=== PATIENT | male | born 1945 | race Caucasian/White ===

== ENCOUNTER 2016-05-30 07:07 | Emergency (ER) | payer OTHER ==
[~2016-05-30] VITALS: Ht 177.8 cm; Wt 90.7 kg
[2016-05-30] MEDS: NICARDIPINE 25MG/250ML BAG KIT 250 ML IV SCH ×2 (07:32→12:32)
[2016-05-30] MEDS: LABETALOL HCL 5 MG/ML 4ML SYRINGE IV ONE ×2 (07:45→08:02)
[2016-05-30] MEDS ORDERED: LABETALOL HCL 5 MG/ML 4ML SYRINGE IV ONE ×3 (07:45→12:00)
[2016-05-30 08:24] LABS: Basophils # (auto) 0 uL; Basophils % (auto) 0.5 % (0.0-2.0); Eosinophils # (auto) 0.3 uL; Eosinophils % (auto) 2.9 % (0.0-7.0); Hematocrit 48.1 % (41.0-53.0); Hemoglobin 16.3 g/dL (13.5-17.5); Lymphocytes # (auto) 3.2 uL; Lymphocytes % (auto) 32.5 % (10.0-50.0); Mean Corpuscular Hemoglobin 30.7 pg (28.0-32.0); Mean Corpuscular Hgb Conc. 33.9 g/dL (32.0-36.0); Mean Corpuscular Volume 90.7 fL (80.0-100.0); Mean Platelet Volume 9.8 fL (7.4-10.4); Monocytes # (auto) 0.6 uL; Monocytes % (auto) 6.1 % (0.0-12.0); Neutrophils # (auto) 5.7 uL; Platelet Count (auto) 213 10^3/uL (140-450); Red Cell Distribution Width 12.1 % (11.6-16.0); White Blood Cell 9.8 10^3/uL (4.4-10.8)
[2016-05-30 08:43] LABS: Albumin 3.9 g/dL (3.4-5.0); BUN/Creatinine Ratio 17.9; Calcium 9.2 mg/dL (8.5-10.1); Potassium 3.6 mmol/L (3.5-5.1); Total Protein 7.5 g/dL (6.4-8.2)
[2016-05-30 09:09] LABS: INR 1.08 (0.9-1.15); Partial Thromboplastin Time 26.9 sec (22.64-33.71); Prothrombin Time 11.1 sec (9.37-12.3)
[2016-05-30] MEDS ORDERED: ACETAMINOPHEN 650 mg PER 20 mL UD ONE (11:57)
[2016-05-30] MEDS ORDERED: ACETAMINOPHEN 650 mg PER 20 mL UD PO ONE (12:00)
[2016-05-30 12:57] VITALS: BP 142/99
== END 2016-05-30 13:02 | disposition short-term general hospital (02) ==
LOC: EDBD 07:07 → ER 07:17
DX: R04.0 Epistaxis (principal); I10 Essential (primary) hypertension; E11.9 Type 2 diabetes mellitus without complications
CPT/HCPCS: 36415; 71010; 80053; 85025; 85049; 85610; 85730; 96374; 96376; 99285; J3490; 30901

== ENCOUNTER 2023-03-31 18:09 | Emergency (ER) | payer OTHER ==
[~2023-03-31] VITALS: Ht 172.7 cm; Wt 83.4 kg
[2023-03-31] MEDS ORDERED: predniSONE 20 MG TAB PO ONE (20:30)
[2023-03-31] MEDS ORDERED: ONDANSETRON HCL 4 MG/2 ML VIAL IV ONE (20:30)
[2023-03-31] MEDS ORDERED: VANCOMYCIN PER PHARMACY 0 MG IV SCH (20:30)
[2023-03-31] MEDS ORDERED: SODIUM CHLORIDE 0.9% 2,500 ML IV ONE (20:30)
[2023-03-31] MEDS ORDERED: ACETAMINOPHEN 325 MG TAB PO ONE (20:30)
[2023-03-31] MEDS ORDERED: PANTOPRAZOLE 40 MG/10 ML VIAL INJ IV ONE (20:30)
[2023-03-31 21:28] LABS: Hematocrit 50.6 % (41.0-53.0); Hemoglobin 16.6 g/dL (13.5-17.5); Mean Corpuscular Hemoglobin 31.9 pg (28.0-32.0); Mean Corpuscular Hgb Conc. 32.8 g/dL (32.0-36.0); Mean Corpuscular Volume 97.2 fL (80.0-100.0); Red Blood Cells 5.21 10^6/uL (4.5-5.90); Red Cell Distribution Width 13.6 % (11.8-14.3); White Blood Cell 7.9 10^3/uL (4.4-10.8)
[2023-03-31 21:32] LABS: Band Neutrophils % (manual) 0; Basophils % (manual) 0 (0.0-2.0); Blast Cells 0; Eosinophils % (manual) 0 (0-7); Metamyelocytes % 0; Myelocytes % 0; Promyelocytes % 0; Reactive Lymphocytes 0
[2023-03-31 22:06] LABS: Magnesium 1.7 mg/dL (1.6-2.6)
[2023-03-31 22:08] LABS: INR 1.09 (0.9-1.15); Partial Thromboplastin Time 26.3 SEC (24.5-34.5); Prothrombin Time 11.4 sec (9.3-11.8)
[2023-03-31 22:09] LABS: Anion Gap 11 (5-15); BUN/Creatinine Ratio 8.5 (10.0-20.0); Creatine Kinase IFCC 111 U/L (46-171)
[2023-03-31] MEDS ORDERED: VANCOMYCIN 1GM/250ML 250 ML IV ONE (22:30)
[2023-03-31 22:31] LABS: Alkaline Phosphatase 95 U/L (46-116); Blood Urea Nitrogen 10 mg/dL (9-23); Carbon Dioxide 23 mmol/L (20-30); Chloride 108 mmol/L (98-107); Glucose 149 mg/dL (74-106); Potassium 4.1 mmol/L (3.5-5.1); Sodium 142 mmol/L (136-145)
[2023-03-31 22:32] LABS: Alanine Aminotransferase 14 U/L (7-40); Albumin 3.7 g/dL (3.2-4.8); Aspartate Aminotransferase 22 U/L (13-40); Blood Alcohol < 3.0 mg/dL (<10); Calcium 9.2 mg/dL (8.5-10.1)
[2023-03-31 22:50] VITALS: PULSE 66; RESP 16; O2SAT 98
[2023-03-31 22:59] LABS: Lymphocytes % (manual) 15 (10.0-50.0); Monocytes % (manual) 15 (0-12); Platelet Estimate Decreased; RBC Morphology Normal
[2023-03-31] MEDS ORDERED: ENALAPRILAT 1.25 MG/ML-1ML VIAL IV ONE (23:15)
[2023-03-31 23:17] LABS: Lactic Acid w/Reflex 2.1 mmol/L (0.4-2.0)
[2023-04-01] MEDS: PIPERACILLIN-TAZOB 3.375GM 100 ML IV SCH ×2 (00:56→06:03)
[2023-04-01 04:37] LABS: Urine Bacteria NONE SEEN /hpf (None Seen); Urine Blood Negative /uL (Negative); Urine Clarity Clear (Clear); Urine Color Colorless (Yellow); Urine Protein, UAD Negative (Negative); Urine Specific Gravity 1.004 (1.001-1.035); Urine Urobilinogen Normal (Negative); Urine WBC <1 /hpf (0 - 3)
[2023-04-01 04:59] LABS: Amphetamine Screen, Urine Neg (NEGATIVE); Barbiturate Scree,Urine Neg (NEGATIVE); Benzodiazephine Screen, Urine Neg (NEGATIVE); Cocaine Screen, Urine Neg (NEGATIVE)
[2023-04-01 05:00] LABS: Cannabinoid Screen, Urine Neg (NEGATIVE); Opiate Scree,Urine Neg (NEGATIVE); Phencyclidine Screen, Urine Neg (NEGATIVE)
[2023-04-01 07:02] LABS: COVID19 ANTIGEN SOFIA FIA POSITIVE (NEGATIVE)
[2023-04-01 07:55] VITALS: PULSE 53; RESP 17; O2SAT 99
[2023-04-01] MEDS ORDERED: amLODIPine BESYLATE 5 MG TAB PO ONE (08:30)
[2023-04-01 11:01] VITALS: BP 169/97; PULSE 55; RESP 16; TEMP 97.8; O2SAT 99
== END 2023-04-01 11:13 | disposition short-term general hospital (02) ==
LOC: EDBD 18:09 → ER 18:09
DX: G70.01 Myasthenia gravis with (acute) exacerbation (principal); U07.1 COVID-19; I10 Essential (primary) hypertension; E11.9 Type 2 diabetes mellitus without complications; Z98.890 Other specified postprocedural states; Z86.2 Personal history of diseases of the blood and blood-forming organs and certain disorders involving the immune mechanism; Z79.899 Other long term (current) drug therapy
CPT/HCPCS: 36415; 70450; 71045; 72131; 80053; 80307; 80320; 81001; 82550; 83605; 83735; 83880; 84443; 84484; 85007; 85027; 85610; 85730; 87040; 87086; 87426; 93005; 96365; 96366; 96367; 96375; 99285; C9113; J2543; J3370; J7512; 99291

== ENCOUNTER 2024-05-14 17:13 | Inpatient (IN) | payer OTHER ==
[~2024-05-14] VITALS: Ht 170.2 cm; Wt 84.2 kg
--- NOTE | 2024-05-14 18:26 | ED.PDOC ---
HPI Comments HPI: Poor Historian. Vitals: Temp: 97.4 F RR; 20 Heart rate: 50 BP: 207/78 Past Medical History: diabetes, hypertension, hyperlipidemia, Past Surgical History: triple bypass surgery 2022, medications: Plavix, metformin, atorvastatin, terbinafine, terazosin, lisinopril, prednisone , allergies: nkda REVIEW OF SYSTEMS: CONSTITUTIONAL: Denies acute: fever, diaphoresis, chills, generalized weakness. HEAD: Denies acute: headache, photophobia Eyes: Denies acute: Double vision, vision loss, eye pain, eye discharge. EARS: Denies acute: tinnitus, hearing loss, ear discharge, ear pain, THROAT: Denies acute: sore throat, swelling, difficulty swallowing , pain with swallowing, change in voice. NECK: Denies acute: neck pain, neck swelling, stiff neck. HEART: Denies acute : chest pain, palpitations, LUNGS: Denies acute: SOB, wheezing, cough, hemoptysis ABDOMEN: Denies acute: abdominal pain, Nausea, Vomiting, diarrhea, melena , hematemesis, hematochezia SKIN: Denies acute: rash, redness, lesions, itchiness. EXTREMITIES: Denies acute: calf pain, numbness, tingling, weakness, denies pain in extremity. Denies acute: Low back pain. Neuro: Denies acute: focal neurological deficit, motor or sensory focal neurological deficit, tremors, seizure like activity, confusion, dizziness, change in mental status, loss of bowel or bladder function, cauda equina like symptoms. : Denies acute: dysuria, hematuria, flank pain, increase in urinary frequency. PSYCH: Denies acute: hallucination, suicidal ideation, homicidal ideation. PHYSICAL EXAM: General: no acute distress, awake and alert. Hard of hearing Head: normocephalic, atraumatic. Neck: supple, trachea is midline, no swelling. Throat: Normal phonation. Eyes:, no purulent discharge, no proptosis, no icterus. Heart: regular rate, regular rhythm, no significant murmur appreciated. Lungs: no apparent respiratory distress, Able to speak in full sentences. No wheezing, no rhonchi, no crackles. No stridors Clear to auscultation bilaterally. Abdomen: non tender to palpation, non distended, soft, no guarding, no rebound, + bowel sounds. Neuro: Awake, Alert, oriented to name, self, situation, follows commands GCS=15. Speech is normal. Skin: no petechia, no purpura, no cyanosis, non-pale, not jaundice. Lower extremities: --trace bilateral - Pitting edema no deformity, no focal swelling, no calf TTP. Makes eye contact. moves all four extremities. Face: no apparent facial droop. Ambulating in the ED independently. Chief Complaint: High Blood Pressure Time Seen by MD: 17:19 Primary Care Provider: ? Reviewed Notes: Nurses Notes, Medications, Allergies Allergies: Coded Allergies: NO KNOWN ALLERGIES (Unverified , 05/30/16) Information Source: Patient Mode of Arrival: Ambulatory Past Medical History PAST MEDICAL HISTORY: DM, HTN, Denies Family History Family History: Unknown Social History Smoker: Non-Smoker Alcohol: Denies ETOH Use Drugs: Denies Drug Use Was a procedure done? Was a procedure done?: No X-Ray, Labs, Meds, VS Vital Signs Date Time Temp Pulse Resp B/P (MAP) Pulse Ox O2 Delivery O2 Flow Rate FiO2 05/15/24 00:52 120/81 05/15/24 00:04 56 18 120/81 (94) 96 05/14/24 22:21 53 18 181/79 (113) 97 05/14/24 21:23 208/93 05/14/24 21:22 53 18 208/93 (131) 97 05/14/24 20:52 208/76 05/14/24 20:17 209/99 05/14/24 20:00 98.7 50 16 209/99 (135) 96 98.7 05/14/24 18:09 51 05/14/24 18:05 97.4 50 20 207/78 (121) 96 Lab Test 05/14/24 21:38 05/14/24 20:12 05/14/24 19:50 05/14/24 19:30 Range/Units Troponin I High Sensitivity 17 14 </=54 ng/L SARS-CoV-2 Antigen (Rapid) Negative NEGATIVE Urine Color Colorless Yellow Urine Clarity Clear Clear Urine pH 6.5 5.0-9.0 Urine Specific [place] 1.005 1.001-1.035 Urine Protein Negative Negative Urine Ketones Negative Negative Urine Blood Negative Negative /uL Urine Nitrite Negative Negative Urine Bilirubin Negative Negative Urine Urobilinogen Normal Negative mg/dL Urine Leukocyte Esterase Negative Negative /uL Urine RBC None seen 0 - 3 /hpf Urine WBC <1 0 - 3 /hpf Urine Squamous Epithelial Cells None seen <5 /hpf Urine Bacteria None seen None Seen /hpf Urine Glucose 1+ H Normal mg/dL Test 05/14/24 18:56 Range/Units White Blood Count 6.7 4.4-10.8 10^3/uL Red Blood Count 4.94 4.5-5.90 10^6/uL Hemoglobin 15.6 13.5-17.5 g/dL Hematocrit 46.1 41.0-53.0 % Mean Corpuscular Volume 93.4 80.0-100.0 fL Mean Corpuscular Hemoglobin 31.7 28.0-32.0 pg Mean Corpuscular Hemoglobin Concent 33.9 32.0-36.0 g/dL Red Cell Distribution Width 13.7 11.8-14.3 % Platelet Count 160 140-450 10^3/uL Mean Platelet Volume 9.5 6.9-10.8 fL Neutrophils (%) (Auto) 64.8 37.0-80.0 % Lymphocytes (%) (Auto) 25.5 10.0-50.0 % Monocytes (%) (Auto) 8.6 0.0-12.0 % Eosinophils (%) (Auto) 0.7 0.0-7.0 % Basophils (%) (Auto) 0.4 0.0-2.0 % Neutrophils # (Auto) 4.3 1.6-8.6 10 ^3/uL Lymphocytes # (Auto) 1.7 0.4-5.4 10 ^3/uL Monocytes # (Auto) 0.6 0-1.3 10 ^3/uL Eosinophils # (Auto) 0 0-0.8 10 ^3/uL Basophils # (Auto) 0 0-0.2 10 ^3/uL Nucleated Red Blood Cells 0.0 % Sodium Level 141 136-145 mmol/L Potassium Level 4.9 3.5-5.1 mmol/L Chloride Level 106 98-107 mmol/L Carbon Dioxide Level 28 20-31 mmol/L Anion Gap 7 5-15 Blood Urea Nitrogen 19 9-23 mg/dL Creatinine 1.39 H 0.700-1.30 mg/dL Glomerular Filtration Rate Calc 52 >90 mL/min BUN/Creatinine Ratio 13.7 10.0-20.0 Serum Glucose 187 H 74-106 mg/dL Calcium Level 9.9 8.7-10.4 mg/dL Total Bilirubin 1.0 0.2-1.0 mg/dL Aspartate Amino Transferase (AST) 30 13-40 U/L Alanine Aminotransferase (ALT) 33 7-40 U/L Alkaline Phosphatase 139 H 46-116 U/L Troponin I High Sensitivity 12 </=54 ng/L B-Type Natriuretic Peptide 867.15 0-100 pg/mL Total Protein 6.5 5.7-8.2 g/dL Albumin 4.3 3.2-4.8 g/dL Current Medications Medications (Trade) Dose Ordered Sig/Farheen Route Start Time Stop Time Status Last Admin Hydralazine HCl (Apresoline Injection) 5 mg ONCE ONCE IV 05/14/24 18:15 05/14/24 18:16 DC 05/14/24 20:17 Furosemide (Lasix Injection) 40 mg ONCE ONCE IV 05/14/24 20:30 05/14/24 20:31 DC 05/14/24 20:52 Nitroglycerin (Ntrostat Sublingual) 0.4 mg ONCE ONCE SL 05/14/24 20:30 05/14/24 20:31 DC 05/14/24 21:23 [place] [id number] Ph: [phone] DIAGNOSTIC IMAGING Diagnostic Imaging Report : [id number] Signed PATIENT: SANTOS SYED ACCT: [id number] UNIT: [id number] : 1945 LOC: ER ROOM / BED: / AGE / SEX: 78 / M ADM STATUS: REG ER SERVICE 11 ORDERING PHYSICIAN: PEDRITO BECKETT DO PROCEDURE(s): HWOCT - HEAD WITHOUT CONTRAST REASON: R/O BLEED ORDER NUMBER(s): [id number], ACCESSION NUMBER(s): [id number] CT BRAIN WITHOUT CONTRAST HISTORY: R/O BLEED TECHNIQUE: Axial scans were obtained from the skull base through the vertex without contrast. Sagittal and coronal reformats were generated. One or more of the following radiation dose reduction techniques were used for this examination: automated exposure control, adjustment of the mA and/or kV according to patient size, use of iterative reconstruction technique. COMPARISON: CT HEAD WITHOUT CONTRAST on DOS: 03/31/23 FINDINGS: Generalized cerebral atrophy. Patchy periventricular and subcortical white matter hypoattenuation again noted bilaterally. No acute intracranial hemorrhage or definite evidence of large vessel territorial infarction is identified at this time. No midline shift. The basilar cisterns are patent. The visualized paranasal sinuses and mastoid air cells are clear. No mostly displaced calvarial fracture is identified. IMPRESSION: No acute intracranial findings. Chronic appearing nonspecific white matter changes which may be sequelae of microangiopathy. ATED BY: ABE WASHINGTON MD DICTATED DATE/TIME: 05/14/241843 SIGNED BY: ABE WASHINGTON MD SIGNED DATE/TIME: 05/14/241843 CC: [place] [id number] Ph: [phone] DIAGNOSTIC IMAGING Diagnostic Imaging Report : [id number] Signed PATIENT: SANTOS SYED ACCT: [id number] UNIT: [id number] : 1945 LOC: ER ROOM / BED: / AGE / SEX: 78 / M ADM STATUS: REG ER SERVICE 03 ORDERING PHYSICIAN: PEDRITO BECKETT DO PROCEDURE(s): CXR2 - CHEST TWO VIEWS ROUTINE REASON: HYPERTENSION ORDER NUMBER(s): [id number], ACCESSION NUMBER(s): [id number] CHEST RADIOGRAPH Indication: HYPERTENSION Technique: Frontal and lateral view of the chest was obtained Comparison: None FINDINGS: Lines and Tubes: None Lungs: Clear Pleura: No effusion. No pneumothorax. Cardiomediastinal contours: Mild cardiomegaly. Bones: Unremarkable IMPRESSION: No evidence of acute disease. ATED BY: LYNNE FUNK DO DICTATED DATE/TIME: 05/14/241836 SIGNED BY: LYNNE FUNK DO SIGNED DATE/TIME: 05/14/241836 CC: Time of 1ST Reevaluation: 19:01 (The case was discussed with the [facility] admitting team (HPI, physical exam, labs and diagnostic tests that were available at the time of disposition, ED course, treatment plan) on the phone. They said they will most likely authorized us to keep the patient our facility since they have no capacity at the hospitalist. Labs are still pending. Authorization number is [id number] Dr. Calderon) Reevaluation 1ST: Unchanged Time of 2ND Reevaluation: 01:49 ([facility] was contacted again because we have not heard from them yet. They now authorized us to keep the patient our facility for further evaluation and treatment. Authorization #[id number] Dr. Gokul Alegre) Patient Education/Counseling: Diagnosis, Treatment Family Education/Counseling: No Family Present Comments MDM: Patient presented with the above HPI.---high blood pressure-- -workup was initiated. patient was found with the above mentioned diagnosis. The following tests / medications were ordered: nitro, furosemide, covid 19 test , chest x-ray, BNP, CBC, CMP, hydralazine, troponinx3, EKG x3, CT head w/o contrast, UA Patient ED course and VS have been stabilized. Patient has been reassessed in the ED and remained in a stable condition. Patient has been observed in the ED adequate length of time to insure improvement/stability. Escalation of care considered: Consideration of escalation to observation or admission. patient was ADMITTED to the medicine team for further evaluation and treatment of their presentation. All the reports of any imaging studies that were ordered by myself were reviewed by myself. Departure 1 Departure Time of Disposition: 20:24 Impression: Primary Impression: Hypertensive crisis Additional Impression: Abnormal EKG Disposition: ADMITTED INPATIENT Admit to: Tele Condition: Guarded Discharged With: Self Critical Care Note Critical Care Time?: No Heart Score Heart Score: Heart Score Response (Comments) Value History Moderate Suspicious 1 Age >65 2 Risk Factors >3 or Hx ASHD 2 Troponin Normal limit 0 Total 5 I personally scribed for PEDRITO BECKETT DO (AMISHAFARMI) on 05/14/24 at 18:48. Electronically submitted by French Dent ([email or web address]). I personally scribed for PEDRITO BECKETT DO (AMISHAFARMI) on 05/14/24 at 22:10. Electronically submitted by French Dent (ARABELLA). I personally scribed for PEDRITO BECKETT DO (AMISHAFARMI) on 05/14/24 at 22:11. Electronically submitted by French Dent ([facility]). PEDRITO BECKETT DO May 14, 2024 18:26
--- NOTE | 2024-05-14 18:39 | DVH ---
CHEST RADIOGRAPH Indication: HYPERTENSION Technique: Frontal and lateral view of the chest was obtained Comparison: None FINDINGS: Lines and Tubes: None Lungs: Clear Pleura: No effusion. No pneumothorax. Cardiomediastinal contours: Mild cardiomegaly. Bones: Unremarkable IMPRESSION: No evidence of acute disease.
--- NOTE | 2024-05-14 18:47 | DVH ---
CT BRAIN WITHOUT CONTRAST HISTORY: R/O BLEED TECHNIQUE: Axial scans were obtained from the skull base through the vertex without contrast. Sagitta l and coronal reformats were generated. One or more of the following radiation dose reduction techniq ues were used for this examination: automated exposure control, adjustment of the mA and/or kV accord ing to patient size, use of iterative reconstruction technique. COMPARISON: CT HEAD WITHOUT CONTRAST on DOS: 03/31/23 FINDINGS: Generalized cerebral atrophy. Patchy periventricular and subcortical white matter hypoattenuation aga in noted bilaterally. No acute intracranial hemorrhage or definite evidence of large vessel territorial infarction is ident ified at this time. No midline shift. The basilar cisterns are patent. The visualized paranasal sinuses and mastoid air cells are clear. No mostly displaced calvarial fract ure is identified. IMPRESSION: No acute intracranial findings. Chronic appearing nonspecific white matter changes which may be sequelae of microangiopathy.
[2024-05-14 19:10] LABS: Basophils # (auto) 0 10 ^3/uL (0-0.2); Basophils % (auto) 0.4 % (0.0-2.0); Eosinophils # (auto) 0 10 ^3/uL (0-0.8); Eosinophils % (auto) 0.7 % (0.0-7.0); Hematocrit 46.1 % (41.0-53.0); Hemoglobin 15.6 g/dL (13.5-17.5); Lymphocytes # (auto) 1.7 10 ^3/uL (0.4-5.4); Lymphocytes % (auto) 25.5 % (10.0-50.0); Mean Corpuscular Hemoglobin 31.7 pg (28.0-32.0); Mean Corpuscular Hgb Conc. 33.9 g/dL (32.0-36.0); Mean Corpuscular Volume 93.4 fL (80.0-100.0); Monocytes # (auto) 0.6 10 ^3/uL (0-1.3); Monocytes % (auto) 8.6 % (0.0-12.0); Neutrophils # (auto) 4.3 10 ^3/uL (1.6-8.6); Neutrophils % (auto) 64.8 % (37.0-80.0); Platelet Count (auto) 160 10^3/uL (140-450); Red Blood Cells 4.94 10^6/uL (4.5-5.90); Red Cell Distribution Width 13.7 % (11.8-14.3); White Blood Cell 6.7 10^3/uL (4.4-10.8)
[2024-05-14 19:27] LABS: Alanine Aminotransferase 33 U/L (7-40); Albumin 4.3 g/dL (3.2-4.8); Anion Gap 7 (5-15); Aspartate Aminotransferase 30 U/L (13-40); BUN/Creatinine Ratio 13.7 (10.0-20.0); Blood Urea Nitrogen 19 mg/dL (9-23); Calcium 9.9 mg/dL (8.7-10.4); Carbon Dioxide 28 mmol/L (20-31); Chloride 106 mmol/L (98-107); Potassium 4.9 mmol/L (3.5-5.1); Sodium 141 mmol/L (136-145); Total Protein 6.5 g/dL (5.7-8.2)
[2024-05-14 19:32] LABS: Alkaline Phosphatase 139 U/L (46-116); Glucose 187 mg/dL (74-106)
[2024-05-14 20:00] VITALS: TEMP 98.7
[2024-05-14] MEDS: hydrALAZINE HCL 20 MG/ML VL IV ONE (20:17)
[2024-05-14] MEDS: FUROSEMIDE 40 MG/4 ML VIAL IV ONE (20:52)
[2024-05-14 20:57] LABS: Urine Bacteria None Seen /hpf (None Seen)
[2024-05-14 21:18] LABS: Urine Blood Negative /uL (Negative); Urine Clarity Clear (Clear); Urine Color Colorless (Yellow); Urine Protein, UAD Negative (Negative); Urine Specific Gravity 1.005 (1.001-1.035); Urine Squamous Epithelial Cell None Seen /hpf (<5); Urine Urobilinogen Normal (Negative); Urine WBC <1 /hpf (0 - 3); Urine pH 6.5 (5.0-9.0)
[2024-05-14] MEDS: NITROGLYCERIN 0.4 MG SL TAB SL ONE (21:23)
[2024-05-14 21:54] LABS: COVID19 ANTIGEN SOFIA FIA NEGATIVE (NEGATIVE)
[2024-05-15] MEDS ORDERED: ACETAMINOPHEN 325 MG TAB PO PRN (02:45)
[2024-05-15] MEDS ORDERED: DEXTROSE (50%) 50ML SYRG IV PRN (02:45)
[2024-05-15] MEDS ORDERED: ONDANSETRON HCL 4 MG/2 ML VIAL IV PRN (02:45)
[2024-05-15] MEDS ORDERED: hydrALAZINE HCL 20 MG/ML VL IV PRN (02:45)
--- NOTE | 2024-05-15 03:06 | DVHHP2 ---
History of Present Illness Reason for Visit: High blood pressure History of Present Illness 78-year-old male presents for evaluation of elevated blood pressure. Patient presents with complaints of elevated blood pressure. Patient noted slight bleeding to his left eye a when he checked his blood pressure it was greater than 200. Currently he denies headache or blurred vision. No chest pain or palpitations. No other acute complaints reported. Past Medical History Dyslipidemia, hypertension, CAD, diabetes mellitus Past Surgical History Triple bypass Family History Noncontributory Smoke: No ALCOHOL: none Drugs: None Lives: with Family Review of Systems Review of Systems Review of systems are currently negative otherwise addressed in HPI. Allergies: Coded Allergies: NO KNOWN ALLERGIES (Unverified , 05/30/16) Medications Current Medications Medications Dose Ordered Sig/Farheen Route Start Time Stop Time Status Last Admin Dose Admin Prednisone 10 mg DAILY PO 05/15/24 10:00 UNV Lisinopril 5 mg DAILY PO 05/15/24 10:00 UNV Clopidogrel Bisulfate 75 mg DAILY PO 05/15/24 10:00 UNV Atorvastatin Calcium 40 mg HS PO 05/15/24 22:00 UNV Isosorbide Mononitrate 60 mg DAILY PO 05/15/24 10:00 UNV Patient Own Medication 5 mg BID PO 05/15/24 10:00 UNV Furosemide 40 mg DAILY PO 05/15/24 10:00 UNV Ondansetron HCl 4 mg Q4HP PRN IV 05/15/24 02:45 UNV Enoxaparin Sodium 40 mg DAILY SC 05/15/24 10:00 UNV Acetaminophen 650 mg Q6HP PRN PO 05/15/24 02:45 UNV Diagnostic Test (Pha) 1 strip ACHS 05/15/24 07:00 UNV Insulin Human Regular ACHS SC 05/15/24 07:00 UNV Dextrose 50 ml UD PRN IV 05/15/24 02:45 UNV Hydralazine HCl 10 mg Q6HP PRN IV 05/15/24 02:45 UNV Exam Vital Signs Vital Signs Date Time Temp Pulse Resp B/P (MAP) Pulse Ox O2 Delivery O2 Flow Rate FiO2 05/15/24 00:52 120/81 05/15/24 00:04 56 18 96 05/14/24 20:00 98.7 98.7 Exam Gen: 78-year-old male in mild distress Skin: Warm, dry, normal color and texture, no rash. HEENT: Normocephalic atraumatic, mucous membranes moist and pink. Neck: Cervical and supraclavicular nodes normal without enlargement, trachea is midline, thyroid gland is normal without masses. Pulmonary: Clear to auscultation and percussion bilaterally. Cardiac: Regular rate and rhythm. No murmur Abdomen: Soft, nontender, nondistended, bowel sounds present all 4 quadrants, no guarding, no rigidity, no organomegaly. Extremities: No cyanosis, clubbing, no edema Neuro: Cranial nerves II through XII grossly intact, normal affect and speech, no focal motor deficits. Labs/Xrays ORDERING PHYSICIAN: PEDRITO BECKETT DO PROCEDURE(s): CXR2 - CHEST TWO VIEWS ROUTINE REASON: HYPERTENSION ORDER NUMBER(s): [id number], ACCESSION NUMBER(s): [id number] CHEST RADIOGRAPH Indication: HYPERTENSION Technique: Frontal and lateral view of the chest was obtained Comparison: None FINDINGS: Lines and Tubes: None Lungs: Clear Pleura: No effusion. No pneumothorax. Cardiomediastinal contours: Mild cardiomegaly. Bones: Unremarkable IMPRESSION: No evidence of acute disease. RING PHYSICIAN: PEDRITO BECKETT DO PROCEDURE(s): HWOCT - HEAD WITHOUT CONTRAST REASON: R/O BLEED ORDER NUMBER(s): [id number], ACCESSION NUMBER(s): [id number] CT BRAIN WITHOUT CONTRAST HISTORY: R/O BLEED TECHNIQUE: Axial scans were obtained from the skull base through the vertex without contrast. Sagittal and coronal reformats were generated. One or more of the following radiation dose reduction techniques were used for this examination: automated exposure control, adjustment of the mA and/or kV according to patient size, use of iterative reconstruction technique. COMPARISON: CT HEAD WITHOUT CONTRAST on DOS: 03/31/23 FINDINGS: Generalized cerebral atrophy. Patchy periventricular and subcortical white matter hypoattenuation again noted bilaterally. No acute intracranial hemorrhage or definite evidence of large vessel territorial infarction is identified at this time. No midline shift. The basilar cisterns are patent. The visualized paranasal sinuses and mastoid air cells are clear. No mostly displaced calvarial fracture is identified. IMPRESSION: No acute intracranial findings. Chronic appearing nonspecific white matter changes which may be sequelae of microangiopathy. Labs Test 05/14/24 21:38 05/14/24 19:50 05/14/24 19:30 05/14/24 18:56 Range/Units Troponin I High Sensitivity 17 </=54 ng/L SARS-CoV-2 Antigen (Rapid) Negative NEGATIVE Urine Color Colorless Yellow Urine Clarity Clear Clear Urine pH 6.5 5.0-9.0 Urine Specific [place] 1.005 1.001-1.035 Urine Protein Negative Negative Urine Ketones Negative Negative Urine Blood Negative Negative /uL Urine Nitrite Negative Negative Urine Bilirubin Negative Negative Urine Urobilinogen Normal Negative mg/dL Urine Leukocyte Esterase Negative Negative /uL Urine RBC None seen 0 - 3 /hpf Urine WBC <1 0 - 3 /hpf Urine Squamous Epithelial Cells None seen <5 /hpf Urine Bacteria None seen None Seen /hpf Urine Glucose 1+ H Normal mg/dL White Blood Count 6.7 4.4-10.8 10^3/uL Red Blood Count 4.94 4.5-5.90 10^6/uL Hemoglobin 15.6 13.5-17.5 g/dL Hematocrit 46.1 41.0-53.0 % Mean Corpuscular Volume 93.4 80.0-100.0 fL Mean Corpuscular Hemoglobin 31.7 28.0-32.0 pg Mean Corpuscular Hemoglobin Concent 33.9 32.0-36.0 g/dL Red Cell Distribution Width 13.7 11.8-14.3 % Platelet Count 160 140-450 10^3/uL Mean Platelet Volume 9.5 6.9-10.8 fL Neutrophils (%) (Auto) 64.8 37.0-80.0 % Lymphocytes (%) (Auto) 25.5 10.0-50.0 % Monocytes (%) (Auto) 8.6 0.0-12.0 % Eosinophils (%) (Auto) 0.7 0.0-7.0 % Basophils (%) (Auto) 0.4 0.0-2.0 % Neutrophils # (Auto) 4.3 1.6-8.6 10 ^3/uL Lymphocytes # (Auto) 1.7 0.4-5.4 10 ^3/uL Monocytes # (Auto) 0.6 0-1.3 10 ^3/uL Eosinophils # (Auto) 0 0-0.8 10 ^3/uL Basophils # (Auto) 0 0-0.2 10 ^3/uL Nucleated Red Blood Cells 0.0 % Sodium Level 141 136-145 mmol/L Potassium Level 4.9 3.5-5.1 mmol/L Chloride Level 106 98-107 mmol/L Carbon Dioxide Level 28 20-31 mmol/L Anion Gap 7 5-15 Blood Urea Nitrogen 19 9-23 mg/dL Creatinine 1.39 H 0.700-1.30 mg/dL Glomerular Filtration Rate Calc 52 >90 mL/min BUN/Creatinine Ratio 13.7 10.0-20.0 Serum Glucose 187 H 74-106 mg/dL Calcium Level 9.9 8.7-10.4 mg/dL Total Bilirubin 1.0 0.2-1.0 mg/dL Aspartate Amino Transferase (AST) 30 13-40 U/L Alanine Aminotransferase (ALT) 33 7-40 U/L Alkaline Phosphatase 139 H 46-116 U/L B-Type Natriuretic Peptide 867.15 0-100 pg/mL Total Protein 6.5 5.7-8.2 g/dL Albumin 4.3 3.2-4.8 g/dL Assessment/Plan Assessment/Plan Assessment Hypertensive urgency Hypertensive retinopathy Diabetes mellitus Acute kidney injury Cardiomegaly Plan Admit the patient to [facility] to the hospitalist Echocardiogram pending Resume home medications Cardiology consultation Continue treatment per orders. Plan discussed with: Patient My Orders Orders - TEJ SINGH AGACNP Procedure Category Date Status Time Prednisone Tablet PHA 05/15/24 Logged 10:00 Lisinopril Tablet PHA 05/15/24 Logged (Zestril Tablet) 10:00 Clopidogrel Bisulfate PHA 05/15/24 Logged (Plavix) 10:00 Atorvastatin (Lipitor) PHA 05/15/24 Logged 22:00 Isosorbide PHA 05/15/24 Logged Mononitrate Tablet 10:00 (Nf) Bisoprolol PHA 05/15/24 Logged 10:00 Basic Metabolic Panel LAB 05/16/24 Verified 04:00 Furosemide Tablet PHA 05/15/24 Logged (Lasix Tablet) 10:00 Admit ADMIT 05/15/24 Transmitted 02:38 Ondansetron Hcl PHA 05/15/24 Logged (Zofran) 02:45 Enoxaparin Sodium PHA 05/15/24 Logged (Lovenox) 10:00 Cardiac DIET 05/15/24 Transmitted Diet-2gna,Lofat,Lochol Breakfast Echo 2d Mode Cardiac US 05/15/24 Logged DOP 02:38 Condition: Stable FAUSTINO 05/15/24 In Process 02:38 Acetaminophen Tablet PHA 05/15/24 Logged (Tylenol Tablet) 02:45 Bedrest With Bathroom FAUSTINO 05/15/24 In Process Privileg 02:38 Glucose Blood PHA 05/15/24 Logged (Accu-Chek Comfort 07:00 Insulin R (Human) PHA 05/15/24 Logged (Insulin R) 07:00 Dextrose 50% Syringe PHA 05/15/24 Logged 02:45 Hydralazine Injection PHA 05/15/24 Logged (Apresoline Inject 02:45 * Cardiology Consult CONS 05/15/24 Verified 02:49 Date of Service: May 15, 2024 Billing Provider: TEJ SINGH Common Visit Codes: [id number] INP/OBS CARE (HIGH) TEJ SINGH May 15, 2024 03:06
[2024-05-15 04:08] VITALS: BP 202/92; PULSE 53; RESP 18; O2SAT 97
[2024-05-15] MEDS ORDERED: InsuLIN REG 1unit/0.01ml Soln (100units/ml) SC SCH (07:00)
[2024-05-15] MEDS ORDERED: ACCU-CHEK COMFORT CURVE STRIP VI SCH (07:00)
[2024-05-15] MEDS ORDERED: FUROSEMIDE 40 MG TAB PO SCH (10:00)
[2024-05-15] MEDS ORDERED: CLOPIDOGREL BISULFATE 75 MG TAB PO SCH (10:00)
[2024-05-15] MEDS ORDERED: ENOXAPARIN SOD 40 MG/0.4 ML SYRINGE SC SCH (10:00)
[2024-05-15] MEDS ORDERED: predniSONE 5 MG TAB PO SCH (10:00)
[2024-05-15] MEDS ORDERED: LISINOPRIL 5 MG TAB PO SCH (10:00)
[2024-05-15] MEDS ORDERED: ISOSORBIDE MONONITRATE ER 60 MG TAB PO SCH (10:00)
[2024-05-15] MEDS ORDERED: ATORVASTATIN 20 MG TAB PO SCH (22:00)
--- NOTE | 2024-05-16 07:39 | ECG ---
[facility] Test Date: 2024-05-14 Test Time: 18:05:48 Pat Name: SANTOS SYED Department: ER Room: [address] [place] [address] Gender: M Relief Captain: MARICRUZ : 1945 Requested By: PEDRITO BECKETT Order Number: [id number] Reading MD: Juan Llanes Measurements Intervals [place] Rate: 51 P: 41 [place]: 208 QRS: -42 QRSD: 125 T: -36 QT: 488 QTc: 450 Interpretive Statements Sinus bradycardia LVH with IVCD, LAD and secondary repol abnrm Electronically Signed On 05-16-2024 13:06:53 PST by Juan Llanes Please click the below link to view image of tracing.
== END 2024-05-15 04:10 | disposition left against medical advice (07) | DRG 305 ==
LOC: ER 17:13 → OVERFLOW 05-15 02:38
PROVIDERS: ADMIT Internal Medicine; ATTEND Internal Medicine
DX: I16.0 Hypertensive urgency (principal); N17.9 Acute kidney failure, unspecified; E11.9 Type 2 diabetes mellitus without complications; H35.039 Hypertensive retinopathy, unspecified eye; I51.7 Cardiomegaly; Z20.822 Contact with and (suspected) exposure to COVID-19; E78.5 Hyperlipidemia, unspecified; I25.10 Atherosclerotic heart disease of native coronary artery without angina pectoris; R94.31 Abnormal electrocardiogram [ECG] [EKG]; Z53.29 Procedure and treatment not carried out because of patient's decision for other reasons
CPT/HCPCS: 36415; 70450; 71046; 80053; 81001; 83880; 84484; 85025; 87426; 93005; G0378